=== PATIENT | male | born 2000 | race American Indian/Alaskan Native ===

== ENCOUNTER 2022-03-29 01:29 | Emergency (ER) | payer SELFPAY ==
[2022-03-29 02:09] VITALS: BP 111/67
== END 2022-03-29 13:51 | disposition left against medical advice (07) ==
LOC: ED 01:29
DX: M54.9 Dorsalgia, unspecified (principal); M79.673 Pain in unspecified foot; Z53.21 Procedure and treatment not carried out due to patient leaving prior to being seen by health care provider; V89.2XXA Person injured in unspecified motor-vehicle accident, traffic, initial encounter; Y93.89 Activity, other specified; Y92.89 Other specified places as the place of occurrence of the external cause; Y99.8 Other external cause status